=== PATIENT | male | born 1965 | race Caucasian/White ===

== ENCOUNTER 2021-09-23 11:27 | Inpatient (IN) | payer OTHER ==
[~2021-09-23] VITALS: Ht 162.6 cm; Wt 80.3 kg
[2021-09-23] MEDS ORDERED: SODIUM CHLORIDE 0.9% 1000ML 1,000 ML IV STA (11:57)
[2021-09-23] MEDS ORDERED: KETOROLAC TROMETHAMINE 30 MG/ML VIAL IV ONE (12:00)
[2021-09-23] MEDS ORDERED: ONDANSETRON HCL INJ 2MG/ML 2ML 2 MG/ML VIAL IV ONE (12:00)
[2021-09-23] MEDS ORDERED: FAMOTIDINE 20 MG/2 ML VIAL IV ONE ×2 (12:00→12:24)
[2021-09-23] MEDS ORDERED: Morphine 4mg Syringe 4 MG/ML INJ IV STA (12:10)
[2021-09-23] MEDS ORDERED: IOPAMIDOL 370 MG/ML 100 ML INFUS..BTL INJ ONE (12:13)
[2021-09-23] MEDS ORDERED: ONDANSETRON HCL INJ 2MG/ML 2ML 2 MG/ML VIAL ONE (12:23)
[2021-09-23] MEDS ORDERED: Morphine 4mg Syringe 4 MG/ML INJ ONE (12:24)
[2021-09-23] MEDS ORDERED: SODIUM CHLORIDE 0.9% 1000ML 1,000 ML ONE (12:24)
[2021-09-23] MEDS ORDERED: KETOROLAC TROMETHAMINE 30 MG/ML VIAL ONE (12:30)
[2021-09-23] MEDS ORDERED: DIPHENHYDRAMINE HCL INJ 50 MG/ML VIAL IV PRN (13:30)
[2021-09-23] MEDS ORDERED: DEXTROSE 50% SYRINGE 50 ML IV PRN (13:30)
[2021-09-23] MEDS ORDERED: Morphine 4mg Syringe 4 MG/ML INJ IV PRN (13:30)
[2021-09-23] MEDS ORDERED: ONDANSETRON HCL INJ 2MG/ML 2ML 2 MG/ML VIAL IV PRN (13:30)
[2021-09-23] MEDS: SODIUM CHLORIDE 0.9% 1000ML 1,000 ML IV SCH (14:00)
[2021-09-23 16:00] VITALS: BP 160/95
[2021-09-23] MEDS: INSULIN REGULAR, HUMAN 100 UNIT/1 ML SQ SCH ×2 (16:30→21:00)
[2021-09-23] MEDS: FAMOTIDINE 20 MG/2 ML VIAL IV SCH (17:00)
[2021-09-23] MEDS ORDERED: HYDRALAZINE HCL 20 MG/ML VIAL IV PRN (17:30)
[2021-09-23] MEDS: Morphine 4mg Syringe 4 MG/ML INJ IV PRN ×2 (18:30→21:15)
[2021-09-23 18:38] VITALS: BP 160/90
[2021-09-23 18:47] VITALS: BP 160/80
[2021-09-23 20:00] VITALS: BP 171/90
[2021-09-24] VITALS (9 sets, daily range): BP systolic 124–162; BP diastolic 82–94
[2021-09-24] MEDS: SODIUM CHLORIDE 0.9% 1000ML 1,000 ML IV SCH (00:17)
[2021-09-24] MEDS: Morphine 4mg Syringe 4 MG/ML INJ IV PRN ×4 (01:40→20:50)
[2021-09-24] MEDS: INSULIN REGULAR, HUMAN 100 UNIT/1 ML SQ SCH ×4 (07:30→20:25)
[2021-09-24 09:21] LABS: BASOPHILS # (AUTO) 0.1 (0.0-0.1); BASOPHILS % 0.5 % (0.0-1.0); EOSINOPHILS # (AUTO) 0.4 (0.0-0.4); EOSINOPHILS % 4.1 % (0.0-6.0); HEMATOCRIT 39.9 % (38.2-49.6); HEMOGLOBIN 13.3 g/dL (14.0-18.0); LYMPHOCYTES # (AUTO) 2.2 (1.0-3.2); LYMPHOCYTES % 24.3 % (18.0-39.1); MEAN CORPUSCULAR HEMOGLOBIN 29.4 pg (28-32); MEAN CORPUSCULAR HGB CONC 33.3 g/dL (31-35); MEAN CORPUSCULAR VOLUME 88.1 fL (81-99); MONOCYTES # (AUTO) 0.7 (0.2-0.8); MONOCYTES % 7.2 % (4.4-11.3); NEUTROPHILS # (AUTO) 5.9 (2.1-6.9); NEUTROPHILS % 63.6 % (38.7-80.0); PLATELET COUNT 293 x10e3/uL (140-360); RED BLOOD COUNT 4.53 x10e6/uL (4.3-5.7); RED CELL DISTRIBUTION WIDTH 13.1 % (11.7-14.4)
[2021-09-24 09:42] LABS: ANION GAP 12.1 mmol/L (8-16); CALCIUM 8.1 mg/dL (8.4-10.2); CREATININE, SERUM 0.84 mg/dL (0.72-1.25); POTASSIUM 4.1 mmol/L (3.5-5.1)
[2021-09-24] MEDS: FAMOTIDINE 20 MG/2 ML VIAL IV SCH ×2 (10:00→17:00)
[2021-09-24] MEDS: DEXTROSE 5%/0.45% SOD CHL 1,000 ML IV SCH ×2 (11:11→20:36)
[2021-09-24] MEDS: HEPARIN SOD (PORCINE) 5,000 UNIT/ML VIAL SC SCH (20:36)
[2021-09-25] VITALS: BP 135/82
[2021-09-25 04:00] VITALS: BP 145/80
[2021-09-25] MEDS: Morphine 4mg Syringe 4 MG/ML INJ IV PRN (04:10)
[2021-09-25] MEDS: DEXTROSE 5%/0.45% SOD CHL 1,000 ML IV SCH (05:58)
[2021-09-25] MEDS: INSULIN REGULAR, HUMAN 100 UNIT/1 ML SQ SCH ×2 (07:30→11:30)
[2021-09-25 07:55] VITALS: BP 127/78
[2021-09-25 09:00] VITALS: BP 127/78
[2021-09-25] MEDS: HEPARIN SOD (PORCINE) 5,000 UNIT/ML VIAL SC SCH (09:00)
[2021-09-25] MEDS: FAMOTIDINE 20 MG/2 ML VIAL IV SCH (10:00)
[2021-09-25] MEDS: ACETAMINOPHEN/CODEINE 300MG - 30MG TAB PO PRN ×2 (10:30→16:42)
[2021-09-25 12:02] VITALS: BP 117/82
[2021-09-25] MEDS ORDERED: ACETAMINOPHEN-1 EAC4 PO (15:42)
[2021-09-25 16:11] VITALS: BP 148/78
== END 2021-09-25 17:53 | disposition home or self-care (01) | DRG 390 ==
LOC: FSED 11:55 → ERHOLD 13:27 → MED/SURG2 15:46
PROVIDERS: ADMIT Internal Medicine; ATTEND Internal Medicine
DX: K56.600 Partial intestinal obstruction, unspecified as to cause (principal); I10 Essential (primary) hypertension; E11.9 Type 2 diabetes mellitus without complications; Z96.652 Presence of left artificial knee joint
CPT/HCPCS: 36415; 74018; 74177; 80048; 80076; 81003; 82948; 85025; 93005; 96374; 96375; 96376; 99284; J0360; J1644; J1885; J2270; J2405; J7030; Q9967; U0002

== ENCOUNTER 2021-11-02 11:36 | Emergency (ER) | payer OTHER ==
[~2021-11-02] VITALS: Ht 162.6 cm; Wt 80.3 kg
[~2021-11-02 11:36] MED LIST: ACETAMINOPHEN-1 EAC4 PO
[2021-11-02] MEDS ORDERED: KETOROLAC TROMETHAMINE 30 MG/ML VIAL IV STA (12:27)
[2021-11-02] MEDS ORDERED: SODIUM CHLORIDE 0.9% 1000ML 1,000 ML IV SCH (12:30)
[2021-11-02] MEDS ORDERED: IOPAMIDOL 370 MG/ML 100 ML INFUS..BTL INJ ONE (12:54)
== END 2021-11-02 14:53 | disposition home or self-care (01) ==
LOC: FSED 12:09
DX: R10.30 Lower abdominal pain, unspecified (principal); K21.9 Gastro-esophageal reflux disease without esophagitis; E11.9 Type 2 diabetes mellitus without complications; I10 Essential (primary) hypertension
CPT/HCPCS: 74177; 99284; J1885; J7030; Q9967